=== PATIENT | male | born 1960 ===

== ENCOUNTER 2021-06-13 15:39 | Outpatient (CLI) | payer SELFPAY ==
[2021-06-13] VITALS (7 sets, daily range): BP systolic 142–154; BP diastolic 69–79; PULSE 61–71; TEMP 98.4–98.6
[~2021-06-13] VITALS: Ht 170.2 cm; Wt 90.9 kg
--- NOTE | 2021-06-13 16:00 | NUR ---
PT TOLERATED BAM INFUSION WITH NO PROBLEM, HE IS AMB TO EXIT WITH STEADY GAIT AT THIS TIME.
== END 2021-06-13 16:00 | disposition home or self-care (01) ==
LOC: EUO 15:39
DX: U07.1 COVID-19 (principal); E66.9 Obesity, unspecified; Z68.25 Body mass index [BMI] 25.0-25.9, adult
CPT/HCPCS: M0245